=== PATIENT | female | born 1975 | race Caucasian/White ===

== ENCOUNTER 2023-10-20 15:39 | Outpatient (REF) | payer BC, SELFPAY ==
[2023-10-20 18:56] LABS: Absolute Basophil Count 0.04 10^3/uL (0.0-0.2); Absolute Eosinophil Count 0.16 10^3/uL (0.0-0.7); Absolute Lymphocyte Count 1.22 10^3/uL (1.2-3.4); Absolute Monocyte Count 0.39 10^3/uL (0.1-0.8); Absolute Neutrophil Count 2.69 10^3/uL (1.2-6.7); Basophils % 0.9; Eosinophils % 3.6; HCT 36.1 % (36.0-46.0); HGB 12.7 g/dL (11.2-15.7); Lymphocytes % 27.1; MCH 30.8 pg (27.0-33.0); MCHC 35.2 % (32.0-36.0); MCV 87 fL (80-95); MPV 12.3 fL (8.0-11.0); Monocytes % 8.7; Neutrophils % 59.7; Platelet Count 141 10^3/uL (130-400); RBC 4.13 10^6/uL (3.93-5.22); RDW 11.7 % (11.7-14.6); RDW-SD 37.3 fL
[2023-10-20 19:04] LABS: BUN 16 mg/dL (7-18); CREATININE 0.8 mg/dL (0.55-1.02); Calcium 9.3 mg/dL (8.5-10.1); Calculated LDL 81 mg/dL (<100); Chloride 104 mmol/L (98-107); Cholesterol 164 mg/dL (<200); Estimated GFR 90.27 (mL/min/1.73m2); Glucose 80 mg/dL (74-106); HDL Cholesterol 74 mg/dL (40-60); Potassium 3.8 mmol/L (3.5-5.1); Sodium 142 mmol/L (136-145); Triglyceride 48 mg/dL (<150)
[2023-10-20 19:15] LABS: Hemoglobin A1C 4.7 % (<5.7)
[2023-10-20 19:23] LABS: Vitamin D 25 Total 27.8 ng/mL (30-100)
[2023-10-21 19:08] LABS: HIV-1/2 Ag & Ab Screen Negative (Negative)
[2023-10-21 19:10] LABS: Hepatitis C Ab w Rflx HCV PCR Negative (Negative)
== END 2023-10-20 15:40 | disposition home or self-care (01) ==
LOC: NCHCN 15:39
PROVIDERS: PCP Nurse Practitioner Family; Visit Provider Nurse Practitioner Family
DX: Z00.00 Encounter for general adult medical examination without abnormal findings (principal); Z13.1 Encounter for screening for diabetes mellitus; Z13.6 Encounter for screening for cardiovascular disorders; Z11.4 Encounter for screening for human immunodeficiency virus [HIV]; Z11.59 Encounter for screening for other viral diseases; E55.9 Vitamin D deficiency, unspecified; Z13.228 Encounter for screening for other metabolic disorders
CPT/HCPCS: 80048; 80061; 82306; 86803; 87389; 83036; 85025

== ENCOUNTER 2024-03-30 15:17 | Outpatient (REF) | payer BC, SELFPAY ==
[2024-03-30 17:36] LABS: Vitamin D 25 Total 40.7 ng/mL (30-100)
== END 2024-03-30 15:18 | disposition home or self-care (01) ==
LOC: NCHCN 15:17
PROVIDERS: PCP Nurse Practitioner Family; Visit Provider Nurse Practitioner Family
DX: E55.9 Vitamin D deficiency, unspecified (principal)
CPT/HCPCS: 82306

== ENCOUNTER 2024-06-12 01:42 | Outpatient (CLI) | payer BC, SELFPAY ==
--- NOTE | 2024-06-12 07:00 | DI.RAD_ITS ---
Exam(s) XR FOOT LT COMPLETE EXAM: XR FOOT LT COMPLETE CLINICAL HISTORY: Left foot pain,m79.672. TECHNIQUE: 2D digital imaging was performed. COMPARISON: No exams were available for comparison FINDINGS: 3 views No evidence of fracture or diastasis of the Lisfranc joint. Hallux valgus is noted. There is only minimal narrowing of the great toe metatarsophalangeal joint. Bone density normal. No osseous lesions nor erosions. No radiopaque foreign bodies. A tiny inferi or calcaneal spur is noted. IMPRESSION: Hallux valgus DATA REPOSITORY: RADIATION DOSE DELIVERED:
== END 2024-06-12 02:02 ==
LOC: DI 01:42
PROVIDERS: PCP Nurse Practitioner Family; Visit Provider Podiatrist
DX: M79.672 Pain in left foot (principal)
CPT/HCPCS: 73630